=== PATIENT | male | born 1990 | race Caucasian/White ===

== ENCOUNTER 2017-11-22 14:09 | Inpatient (IN) | payer OTHER ==
--- NOTE | 2017-11-22 18:21 | HP ---
COWS - Scale Resting Pulse: 1= ID [id number] Sweatin= Chills/Flushing Restless Observation: 1= Difficult to Sit Still Pupil Size: 1= Pupils >than Normal Bone or Joint Aches: 1= Mild Discomfort Runny Nose/ Eye Tearin= Nasal Congestion GI Upset > 30mins: 2= Nausea/Diarrhea Tremor Observation: 1= Tremor Beauty, Not Seen Yawning Observation: 1= 1-2x During Session Anxiety or Irritability: 2=Irritable/Anxious Goose Flesh Skin: 3=Piloerection COWS Score: 15 CIWA Score - CIWA Score Nausea/Vomitin Muscle Tremors: 3 Anxiety: 3 Agitation: 3 Paroxysmal Sweats: 3 Orientation: 0-Oriented Tacttile Disturbances: 1-Very Mild Itch/Numbness Auditory Disturbances: 0-None Visual Disturbances: 0-None Headache: 1-Very Mild CIWA-Ar Total Score: 17 Admission ROS S - [facility] Chief Complaint: benzodiazepine and heroin withdrawal sx Allergies/Adverse Reactions: Allergies Allergy/AdvReac Type Severity Reaction Status Date / Time No Known Allergies Allergy Verified 11/22/17 18:22 History of Present Illness: 27 yo m with h/o opioid use disorder, had been using for several months but recently developed withdrawal sx and [facility]. PMHX HTN, no t on meds, ehlerrs danlos syndrome, deprewssion and anxieyt, insomnia, thirsty. Exam Limitations: No Limitations - Ebola screening Have you traveled outside of the country in the last 21 days: No Have you had contact with anyone from an Ebola affected area: No Have you been sick,other than usual withdrawal symptoms: No Do you have a fever: No - Review of Systems Constitutional: Chills, Diaphoresis, Night Sweats, Unintentional Wgt. Loss EENT: reports: Tearing, Nose Congestion Respiratory: reports: No Symptoms reported Cardiac: reports: No Symptoms Reported GI: reports: Nausea, Poor Appetite, Poor Fluid Intake, Indigestion, Abdominal cramping : reports: No Symptoms Reported Musculoskeletal: reports: Back Pain, Joint Pain, Muscle Pain Integumentary: reports: Flushing, Sweating Neuro: reports: Headache, Numbness, Seizure (last withdrawal seizures 1 year ago ), Tingling, Tremors Endocrine: reports: Increased Thirst Psychiatric: reports: Judgement Intact, Mood/Affect Appropiate, Orientated x3, Anxious, Depressed Other Systems: Reviewed and Negative Patient History - Patient Medical History Hx Anemia: No Hx Asthma: No Hx Chronic Obstructive Pulmonary Disease (COPD): No Hx Cancer: No Hx Cardiac Disorders: No Hx Congestive Heart Failure: No Hx Hypertension: No Hx Hypercholesterolemia: No Hx Pacemaker: No HX Cerebrovascular Accident: No Hx Seizures: Yes (withdrawal seizures ) Hx Dementia: No Hx Diabetes: No Hx Gastrointestinal Disorders: No Hx Liver Disease: No Hx Genitourinary Disorders: No Hx Sexually Transmitted Disorders: No Hx Renal Disease (ESRD): No Hx Thyroid Disease: No Hx Human Immunodeficiency Virus (HIV): No Hx Hepatitis C: No Hx Depression: Yes Hx Suicide Attempt: No (no si at this time) Hx Bipolar Disorder: No Hx Schizophrenia: No - Patient Surgical History Past Surgical History: Yes Hx Neurologic Surgery: No Hx Cataract Extraction: No Hx Cardiac Surgery: No Hx Lung Surgery: No Hx Breast Surgery: No Hx Breast Biopsy: No Hx Abdominal Surgery: No Hx Appendectomy: No Hx Cholecystectomy: No Hx Genitourinary Surgery: No Hx Section: No Hx Orthopedic Surgery: No Hx Hysterectomy: No Other Surgical History: tonsillectomy Anesthesia Reaction: No - PPD History Previous Implant?: Yes Documented Results: Negative w/o proof Implanted On Prior R Admission?: Yes PPD to be Administered?: Yes - Reproductive History Patient is a Female of Child Bearing Age (11 -55 yrs old): No Patient : No - Smoking Cessation Smoking history: Former smoker Have you smoked in the past 12 months: No If you are a former smoker, when did you quit?: quit 3 years ago Hx Chewing Tobacco Use: No Initiated information on smoking cessation: No 'Breaking Loose' booklet given: 11/22/17 - Substance & Tx. History Hx Alcohol Use: No Hx Substance Use: Yes Substance Use Type: Heroin, Opiates, Prescribed, Tranquilizers Hx Substance Use Treatment: Yes - Substances Abused xanax Route: Oral Frequency: Daily Amount used: 50 mg Age of first use: 17 Date of Last Use: 11/19/17 Heroin Route: Inhalation Frequency: Daily Amount used: 6-10 bags Age of first use: 27 Date of Last Use: 11/22/17 Family Disease History - Family Disease History Family History: Denies Admission Physical Exam BHS - Vital Signs Vital Signs: Vital Signs - 24 hr 11/22/17 11/22/17 16:21 16:25 Temperature 97 F L 96 F L Pulse Rate 83 101 H Respiratory 18 20 Rate Blood Pressure 136/85 132/79 - Physical General Appearance: Yes: Nourished, Appropriately Dressed, Disheveled, Mild Distress, Tremorous, Irritable, Sweating, Anxious HEENTM: Yes: EOMI, Hearing grossly Normal, Normocephalic, Normal Voice, VANE, Pharynx Normal, Nasal Congestion, Rhinorrhea Respiratory: Yes: Within Normal Limits, Chest Non-Tender, Lungs Clear, Normal Breath Sounds, No Respiratory Distress, No Accessory Muscle Use Neck: Yes: Within Normal Limits, No masses,lesions,Nodules, Supple, Trachea in good position Breast: Yes: Breast Exam Deferred Cardiology: Yes: Within Normal Limits, Regular Rhythm, Regular Rate, S1, S2 Abdominal: Yes: Normal Bowel Sounds, Non Tender, Flat, Soft, Increased Bowel Sounds, Protuberent, Distended Genitourinary: Yes: Within Normal Limits Musculoskeletal: Yes: full range of Motion, Gait Steady, Pelvis Stable, Back pain, Muscle Pain Extremities: Yes: Normal Capillary Refill, Normal Range of Motion, Non-Tender, Tremors Neurological: Yes: scalemaker II-XII NML intact, Fully Oriented, Alert, Motor Strength 5/5, Normal Response, Depressed Affect Integumentary: Yes: Normal Color, Warm, Diaphoresis, Moist Lymphatic: Yes: Within Normal Limits - Addiitonal Findings: withdrawal sx - Diagnostic (1) Dehydration Current Visit: Yes Status: Acute (2) Depression Current Visit: Yes Status: Acute (3) Mina-Danlos syndrome Current Visit: Yes Status: Acute (4) Opioid dependence with withdrawal Current Visit: Yes Status: Acute (5) Sedative, hypnotic or anxiolytic dependence with withdrawal, uncomplicated Current Visit: Yes Status: Acute (6) Withdrawal seizures Current Visit: Yes Status: Acute Cleared for Admission [facility] - Detox or Rehab [facility] Level of Care: Medically Managed Detox Regimen/Protocol: Methadone/Librium [facility] Breath Alcohol Content Breath Alcohol Content: 0 Urine Drug Screen - Results Drug Screen Negative: No Urine Drug Screen Results: BZO-Benzodiazepines, TCA-Tricyclic Antidepress
[2017-11-22] MEDS ORDERED: IBUPROFEN 400 MG TABLET (FP) PO PRN (18:23)
[2017-11-22] MEDS ORDERED: guaiFENesin/D-METHORPHAN HB 10 ML UNIT-DOSE CUPS PO PRN (18:23)
[2017-11-22] MEDS ORDERED: MAG HYDROX/AL HYDROX/SIMETH 30 ML UNIT-DOSE CUP PO PRN (18:23)
[2017-11-22] MEDS ORDERED: LOPERAMIDE HCL 2 MG CAPSULE PO PRN (18:23)
[2017-11-22] MEDS ORDERED: P-EPHED 60MG/TRIPROLIDI 2.5MG TABLET PO PRN (18:23)
[2017-11-22] MEDS ORDERED: MAGNESIUM CITRATE 300 ML BOTTLE PO PRN (18:23)
[2017-11-22] MEDS ORDERED: hydrOXYzine PAMOATE 50 MG CAPSULE (FP) PO PRN (18:23)
[2017-11-22] MEDS ORDERED: MAGNESIUM HYDROX 2400MG/30ML ORAL SUSPENSION 30 ML CUP PO PRN (18:23)
[2017-11-22] MEDS ORDERED: MENTHOL/PHENOL 1 EACH UD MM PRN (18:23)
[2017-11-22] MEDS ORDERED: ACETAMINOPHEN 325 MG TABLET (FP) PO PRN (18:23)
[2017-11-22 18:24] VITALS: BMI 26.6
[2017-11-22] MEDS ORDERED: METHADONE HCL 10 MG TABLET (FOR DETOX USE ONLY) PO ONE ×2 (19:00→23:00)
[2017-11-22] MEDS ORDERED: chlordiazePOXIDE HCL 25 MG CAPSULE PO ONE (19:00)
[2017-11-22] MEDS: PANTOPRAZOLE 40 MG TABLET (FP) PO SCH (20:35)
[2017-11-22] MEDS: chlordiazePOXIDE HCL 25 MG CAPSULE PO SCH (22:15)
[2017-11-22] MEDS: THIAMINE HCL 100 MG TABLET (FP) PO SCH (22:15)
[2017-11-22 23:50] LABS: URINE APPEARANCE SLCLOUDY; URINE BILIRUBIN NEGATIVE (NEGATIVE); URINE BLOOD NEGATIVE (NEGATIVE); URINE COLOR YELLOW; URINE GLUCOSE (UA) NEGATIVE (NEGATIVE); URINE KETONE NEGATIVE (NEGATIVE); URINE LEUK ESTERASE NEGATIVE (NEGATIVE); URINE NITRITE NEGATIVE (NEGATIVE); URINE PROTEIN NEGATIVE (NEGATIVE); URINE UROBILINOGEN NEGATIVE mg/dL (0.2-1.0)
[2017-11-23] MEDS: chlordiazePOXIDE HCL 25 MG CAPSULE PO PRN ×2 (01:50→13:12)
[2017-11-23] MEDS: chlordiazePOXIDE HCL 25 MG CAPSULE PO SCH ×4 (05:41→22:15)
--- NOTE | 2017-11-23 09:16 | CONSULT ---
[facility] Psychiatric Consult - Data Date of interview: 11/23/17 Admission source: [facility] Identifying data: Pt. is a 27 year old [place] male, single, unemployed, and currently living at home with mother. This is patient's [facility] to [facility]. Pt. admitted to for benzodiazepine dependence. Substance Abuse History: Following information confirmed with Mr. Amaral: Smoking Cessation. Smoking history: Former smoker. Have you smoked in the past 12 months: No. If you are a former smoker, when did you quit?: quit 3 years ago. Hx Chewing Tobacco Use: No. Initiated information on smoking cessation: No. 'Breaking Loose' booklet given: 11/22/17. - Substance & Tx. History. Hx Alcohol Use: No. Hx Substance Use: Yes. Substance Use Type: Heroin, Opiates, Prescribed, Tranquilizers. Hx Substance Use Treatment: Yes. - Substances Abused. xanax. Route: Oral. Frequency: Daily. Amount used: 50 mg. Age of first use: 17. Date of Last Use: 11/19/17. Heroin. Route: Inhalation. Frequency: Daily. Amount used: 6-10 bags. Age of first use: 27. Date of Last Use: 11/22/17 Medical History: Seizures (withdrawals) Psychiatric History: Pt. denies h/o psychiatric hospitalizations and suicide attempts. Pt. reports past history of outpatient care approximately six months ago and was prescribed zoloft 25mg anxiety. Reports only taking the zoloft for one month. As per patient, ' I didn't like the medication." In 2011 patient reports seeing a psychiatrist who prescribed him seroquel for insomnia. Reports only taking the seroquel for approximately four months. Pt. denies suicidal and homicidal ideation. Physical/Sexual Abuse/Trauma History: Denies. Mental Status Exam - Mental Status Exam Alert and Oriented to: Time, Place, Person Cognitive Function: Good Patient Appearance: Well Groomed Mood: Euthymic Affect: Mood Congruent Patient Behavior: Appropriate Speech Pattern: Clear, Appropriate Voice Loudness: Normal Thought Process: Goal Oriented Thought Disorder: Not Present Hallucinations: Denies Suicidal Ideation: Denies Homicidal Ideation: Denies Insight/Judgement: Poor Sleep: Poorly Appetite: Fair Muscle strength/Tone: Normal Gait/Station: Normal Psychiatric Findings - Problem List ([place] 1, 2,3) (1) Opioid dependence with withdrawal Current Visit: Yes Status: Acute (2) Insomnia Current Visit: Yes Status: Acute (3) Sedative, hypnotic or anxiolytic dependence with withdrawal, uncomplicated Current Visit: Yes Status: Acute - Initial Treatment Plan Initial Treatment Plan: Psychoeducation provided. Detoxification in progress. Seroquel 50mg qhs PRN for insomnia. Pt. reports favorable effect from previously taking seroquel. Benefits and side effects discussed. Verbal consent given. Will continue to monitor.
[2017-11-23] MEDS ORDERED: METHADONE HCL 10 MG TABLET (FOR DETOX USE ONLY) PO SCH (10:00)
[2017-11-23] MEDS: PANTOPRAZOLE 40 MG TABLET (FP) PO SCH (10:10)
[2017-11-23] MEDS: PRENATAL VITAMINS W/ FOLIC ACID TABLET (FP) PO SCH (10:10)
[2017-11-23 10:21] LABS: HEMATOCRIT 41.9 % (35.4-49); HEMOGLOBIN 13.7 GM/dL (11.7-16.9); MCH 27.9 pg (25.7-33.7); MCHC 32.6 g/dl (32.0-35.9); MEAN CELL VOLUME 85.6 fl (80-96); PLATELET COUNT 245 K/MM3 (134-434); RBC 4.89 M/mm3 (4.00-5.60); RDW 13.4 % (11.9-15.9); WHITE BLOOD COUNT 9.1 K/mm3 (4.0-10.0)
[2017-11-23] MEDS ORDERED: CYCLOBENZAPRINE HCL 10 MG TABLET (FP) PO ONE (10:36)
[2017-11-23 10:39] LABS: CHLORIDE 104 mmol/L (98-107); POTASSIUM 3.7 mmol/L (3.5-5.1); SODIUM 140 mmol/L (136-145)
[2017-11-23 10:45] LABS: ALBUMIN 3.6 g/dl (3.4-5.0); ALK PHOS 50 U/L (45-117); ANION GAP 7 (8-16); BILIRUBIN,TOTAL 0.3 mg/dL (0.2-1.0); BLOOD UREA NITROGEN 12 mg/dL (7-18); CALCIUM 8.4 mg/dL (8.5-10.1); CO2 29 mmol/L (21-32); CREATININE 0.8 mg/dL (0.7-1.3); GLUCOSE,RANDOM 88 mg/dL (74-106); SGOT/AST 29 U/L (15-37); SGPT/ALT 48 U/L (12-78)
--- NOTE | 2017-11-23 11:06 | EKG ---
Test Reason : Blood Pressure : / mmHG Vent. Rate : 095 BPM Atrial Rate : 095 BPM P-R Int : 128 ms QRS Dur : 082 ms QT Int : 370 ms P-R-T Axes : 073 052 020 degrees QTc Int : 464 ms NORMAL SINUS RHYTHM NORMAL ECG NO PREVIOUS ECGS AVAILABLE Confirmed by BEREKET HO MD ([id number]) on 11/23/2017 11:06:05 AM Referred By: Confirmed By:BEREKET HO MD
[2017-11-23 11:49] LABS: SICKLE CELL SCREEN NEGATIVE (NEGATIVE)
--- NOTE | 2017-11-23 12:42 | PN ---
S CIWA - CIWA Score Nausea/Vomitin-No Nausea/No Vomiting Muscle Tremors: 4-Moderate,w/Arms Extend Anxiety: 4-Mod. Anxious/Guarded Agitation: 3 Paroxysmal Sweats: 1-Minimal Palms Moist Orientation: 0-Oriented Tacttile Disturbances: 3-Moderate Itch/Numb/Burn Auditory Disturbances: 0-None Visual Disturbances: 0-None Headache: 0-None Present CIWA-Ar Total Score: 15 BHS COWS - Scale Resting Pulse: 0= [place] 80 or Below Sweatin= Chills/Flushing Restless Observation: 3= Extraneous Movement Pupil Size: 2= Moderately Dilated Bone or Joint Aches: 4=Acute Joint/Muscle Pain Runny Nose/ Eye Tearin= Nasal Congestion GI Upset > 30mins: 1= Stomach Cramp Tremor Observation of Outstretched Hands: 2= Slight Tremor Visible Yawning Observation: 1= 1-2x During Session Anxiety or Irritability: 2=Irritable/Anxious Goose Flesh Skin: 0=Smooth Skin COWS Score: 17 S Progress Note (SOAP) Subjective: ANXIETY,SWEATS,BODY ACHES,IRRITABILITY,CONSTIPATION AND MOM NOT EFFECTIVE. INTERMITTENT SLEEP. Objective: 11/23/17 12:40 Vital Signs Temperature 96.0 F L 11/23/17 09:42 Pulse Rate 76 11/23/17 09:42 Respiratory Rate 20 11/23/17 09:42 Blood Pressure 117/80 11/23/17 09:42 O2 Sat by Pulse Oximetry (%) Laboratory Last Values WBC 9.1 K/mm3 (4.0-10.0) 11/23/17 07:00 RBC 4.89 M/mm3 (4.00-5.60) 11/23/17 07:00 Hgb 13.7 GM/dL (11.7-16.9) 11/23/17 07:00 Hct 41.9 % (35.4-49) 11/23/17 07:00 MCV 85.6 fl (80-96) 11/23/17 07:00 MCH 27.9 pg (25.7-33.7) 11/23/17 07:00 MCHC 32.6 g/dl (32.0-35.9) 11/23/17 07:00 RDW 13.4 % (11.9-15.9) 11/23/17 07:00 Plt Count 245 K/MM3 (134-434) 11/23/17 07:00 MPV 9.0 fl (7.5-11.1) 11/23/17 07:00 Sickle Cell Screen Negative (NEGATIVE) 11/23/17 07:00 Sodium 140 mmol/L (136-145) 11/23/17 07:00 Potassium 3.7 mmol/L (3.5-5.1) 11/23/17 07:00 Chloride 104 mmol/L (98-107) 11/23/17 07:00 Carbon Dioxide 29 mmol/L (21-32) 11/23/17 07:00 Anion Gap 7 (8-16) L 11/23/17 07:00 BUN 12 mg/dL (7-18) 11/23/17 07:00 Creatinine 0.8 mg/dL (0.7-1.3) 11/23/17 07:00 Creat Clearance w eGFR > 60 (>60) 11/23/17 07:00 Random Glucose 88 mg/dL (74-106) 11/23/17 07:00 Calcium 8.4 mg/dL (8.5-10.1) L 11/23/17 07:00 Total Bilirubin 0.3 mg/dL (0.2-1.0) 11/23/17 07:00 AST 29 U/L (15-37) 11/23/17 07:00 ALT 48 U/L (12-78) 11/23/17 07:00 Alkaline Phosphatase 50 U/L (45-117) 11/23/17 07:00 Total Protein 6.0 g/dl (6.4-8.2) L 11/23/17 07:00 Albumin 3.6 g/dl (3.4-5.0) 11/23/17 07:00 Urine Color Yellow 11/22/17 23:25 Urine Appearance Slcloudy 11/22/17 23:25 Urine pH 5.0 (5.0-8.0) 11/22/17 23:25 Ur Specific [place] 1.024 (1.001-1.035) 11/22/17 23:25 Urine Protein Negative (NEGATIVE) 11/22/17 23:25 Urine Glucose (UA) Negative (NEGATIVE) 11/22/17 23:25 Urine Ketones Negative (NEGATIVE) 11/22/17 23:25 Urine Blood Negative (NEGATIVE) 11/22/17 23:25 Urine Nitrite Negative (NEGATIVE) 11/22/17 23:25 Urine Bilirubin Negative (NEGATIVE) 11/22/17 23:25 Urine Urobilinogen Negative mg/dL (0.2-1.0) 11/22/17 23:25 Ur Leukocyte Esterase Negative (NEGATIVE) 11/22/17 23:25 RPR Titer Nonreactive (NONREACTIVE) 11/23/17 07:00 HIV 1&2 Antibody Screen Negative 11/23/17 07:00 HIV P24 Antigen Negative 11/23/17 07:00 Assessment: 11/23/17 12:40 WITHDRAWAL SX Plan: CONTINUE DETOX
[2017-11-23] MEDS: CYCLOBENZAPRINE HCL 10 MG TABLET (FP) PO SCH ×2 (13:12→22:15)
[2017-11-23] MEDS: THIAMINE HCL 100 MG TABLET (FP) PO SCH (22:15)
[2017-11-23] MEDS: QUEtiapine FUMARATE 50 MG TABLET PO SCH (22:15)
[2017-11-24] MEDS: chlordiazePOXIDE HCL 25 MG CAPSULE PO SCH ×3 (05:51→17:24)
[2017-11-24] MEDS: CYCLOBENZAPRINE HCL 10 MG TABLET (FP) PO SCH ×3 (05:51→22:10)
[2017-11-24] MEDS ORDERED: METHADONE HCL 5 MG TABLET (FOR DETOX USE ONLY) PO ONE (10:00)
[2017-11-24] MEDS ORDERED: METHADONE HCL 5 MG TABLET (FOR DETOX USE ONLY) PO SCH (10:00)
[2017-11-24] MEDS: PANTOPRAZOLE 40 MG TABLET (FP) PO SCH (10:14)
[2017-11-24] MEDS: PRENATAL VITAMINS W/ FOLIC ACID TABLET (FP) PO SCH (10:16)
--- NOTE | 2017-11-24 16:39 | PN ---
[facility] CIWA - CIWA Score Nausea/Vomitin-No Nausea/No Vomiting Muscle Tremors: 4-Moderate,w/Arms Extend Anxiety: 3 Agitation: 4-Moderately Restless Paroxysmal Sweats: 1-Minimal Palms Moist Orientation: 0-Oriented Tacttile Disturbances: 3-Moderate Itch/Numb/Burn Auditory Disturbances: 0-None Visual Disturbances: 0-None Headache: 0-None Present CIWA-Ar Total Score: 15 BHS COWS - Scale Resting Pulse: 0= [place] 80 or Below Sweatin= Chills/Flushing Restless Observation: 3= Extraneous Movement Pupil Size: 0= Normal to Room Light Bone or Joint Aches: 4=Acute Joint/Muscle Pain Runny Nose/ Eye Tearin= Nasal Congestion GI Upset > 30mins: 1= Stomach Cramp Tremor Observation of Outstretched Hands: 1= Tremor [place], Not Seen Yawning Observation: 1= 1-2x During Session Anxiety or Irritability: 2=Irritable/Anxious Goose Flesh Skin: 0=Smooth Skin COWS Score: 14 [facility] Progress Note (SOAP) Subjective: ANXIETY,SWEATS,FATIGUE. Objective: 11/24/17 16:39 Vital Signs Temperature 96.9 F L 11/24/17 13:01 Pulse Rate 75 11/24/17 13:01 Respiratory Rate 18 11/24/17 13:01 Blood Pressure 98/65 11/24/17 13:01 O2 Sat by Pulse Oximetry (%) Laboratory Last Values WBC 9.1 K/mm3 (4.0-10.0) 11/23/17 07:00 RBC 4.89 M/mm3 (4.00-5.60) 11/23/17 07:00 Hgb 13.7 GM/dL (11.7-16.9) 11/23/17 07:00 Hct 41.9 % (35.4-49) 11/23/17 07:00 MCV 85.6 fl (80-96) 11/23/17 07:00 MCH 27.9 pg (25.7-33.7) 11/23/17 07:00 MCHC 32.6 g/dl (32.0-35.9) 11/23/17 07:00 RDW 13.4 % (11.9-15.9) 11/23/17 07:00 Plt Count 245 K/MM3 (134-434) 11/23/17 07:00 MPV 9.0 fl (7.5-11.1) 11/23/17 07:00 Sickle Cell Screen Negative (NEGATIVE) 11/23/17 07:00 Sodium 140 mmol/L (136-145) 11/23/17 07:00 Potassium 3.7 mmol/L (3.5-5.1) 11/23/17 07:00 Chloride 104 mmol/L (98-107) 11/23/17 07:00 Carbon Dioxide 29 mmol/L (21-32) 11/23/17 07:00 Anion Gap 7 (8-16) L 11/23/17 07:00 BUN 12 mg/dL (7-18) 11/23/17 07:00 Creatinine 0.8 mg/dL (0.7-1.3) 11/23/17 07:00 Creat Clearance w eGFR > 60 (>60) 11/23/17 07:00 Random Glucose 88 mg/dL (74-106) 11/23/17 07:00 Calcium 8.4 mg/dL (8.5-10.1) L 11/23/17 07:00 Total Bilirubin 0.3 mg/dL (0.2-1.0) 11/23/17 07:00 AST 29 U/L (15-37) 11/23/17 07:00 ALT 48 U/L (12-78) 11/23/17 07:00 Alkaline Phosphatase 50 U/L (45-117) 11/23/17 07:00 Total Protein 6.0 g/dl (6.4-8.2) L 11/23/17 07:00 Albumin 3.6 g/dl (3.4-5.0) 11/23/17 07:00 Urine Color Yellow 11/22/17 23:25 Urine Appearance Slcloudy 11/22/17 23:25 Urine pH 5.0 (5.0-8.0) 11/22/17 23:25 Ur Specific [place] 1.024 (1.001-1.035) 11/22/17 23:25 Urine Protein Negative (NEGATIVE) 11/22/17 23:25 Urine Glucose (UA) Negative (NEGATIVE) 11/22/17 23:25 Urine Ketones Negative (NEGATIVE) 11/22/17 23:25 Urine Blood Negative (NEGATIVE) 11/22/17 23:25 Urine Nitrite Negative (NEGATIVE) 11/22/17 23:25 Urine Bilirubin Negative (NEGATIVE) 11/22/17 23:25 Urine Urobilinogen Negative mg/dL (0.2-1.0) 11/22/17 23:25 Ur Leukocyte Esterase Negative (NEGATIVE) 11/22/17 23:25 RPR Titer Nonreactive (NONREACTIVE) 11/23/17 07:00 Hepatitis C Antibody <0.1 s/co ratio (0.0-0.9) 11/22/17 07:00 HIV 1&2 Antibody Screen Negative 11/23/17 07:00 HIV P24 Antigen Negative 11/23/17 07:00 Assessment: 11/24/17 16:39 WITHDRAWAL SX Plan: CONTINUE DETOX
[2017-11-24] MEDS: THIAMINE HCL 100 MG TABLET (FP) PO SCH (22:09)
[2017-11-24] MEDS: QUEtiapine FUMARATE 50 MG TABLET PO SCH (22:10)
[2017-11-24] MEDS: chlordiazePOXIDE 5 MG CAPSULE PO SCH (22:10)
[2017-11-25] MEDS: CYCLOBENZAPRINE HCL 10 MG TABLET (FP) PO SCH ×3 (05:32→22:13)
[2017-11-25] MEDS: chlordiazePOXIDE 5 MG CAPSULE PO SCH ×3 (05:32→17:09)
[2017-11-25] MEDS ORDERED: METHADONE HCL 10 MG TABLET (FOR DETOX USE ONLY) PO ONE (10:00)
[2017-11-25] MEDS: PRENATAL VITAMINS W/ FOLIC ACID TABLET (FP) PO SCH (10:20)
[2017-11-25] MEDS: PANTOPRAZOLE 40 MG TABLET (FP) PO SCH (10:20)
--- NOTE | 2017-11-25 14:21 | PN ---
BHS Progress Note (SOAP) Subjective: Body Aches, Sweating, Interrupted Sleep, Fatigue. Objective: PT. A & O X 3, OBSERVED AMBULATING ON UNIT. NO ACUTE DISTRESS. 11/25/17 14:20 Vital Signs Temperature 96.3 F L 11/25/17 13:21 Pulse Rate 83 11/25/17 13:21 Respiratory Rate 18 11/25/17 13:21 Blood Pressure 108/70 11/25/17 13:21 O2 Sat by Pulse Oximetry (%) Laboratory Tests 11/22/17 11/22/17 11/23/17 07:00 23:25 07:00 WBC 9.1 RBC 4.89 Hgb 13.7 Hct 41.9 MCV 85.6 MCH 27.9 MCHC 32.6 RDW 13.4 Plt Count 245 MPV 9.0 Sickle Cell Screen Negative Sodium Potassium Chloride Carbon Dioxide Anion Gap BUN Creatinine Creat Clearance w eGFR Random Glucose Calcium Total Bilirubin AST ALT Alkaline Phosphatase Total Protein Albumin Urine Color Yellow Urine Appearance Slcloudy Urine pH 5.0 Ur Specific [place] 1.024 Urine Protein Negative Urine Glucose (UA) Negative Urine Ketones Negative Urine Blood Negative Urine Nitrite Negative Urine Bilirubin Negative Urine Urobilinogen Negative Ur Leukocyte Esterase Negative RPR Titer Hepatitis C Antibody <0.1 HIV 1&2 Antibody Screen HIV P24 Antigen 11/23/17 11/23/17 11/23/17 07:00 07:00 07:00 WBC RBC Hgb Hct MCV MCH MCHC RDW Plt Count MPV Sickle Cell Screen Sodium 140 Potassium 3.7 Chloride 104 Carbon Dioxide 29 Anion Gap 7 L BUN 12 Creatinine 0.8 Creat Clearance w eGFR > 60 Random Glucose 88 Calcium 8.4 L Total Bilirubin 0.3 AST 29 ALT 48 Alkaline Phosphatase 50 Total Protein 6.0 L Albumin 3.6 Urine Color Urine Appearance Urine pH Ur Specific [place] Urine Protein Urine Glucose (UA) Urine Ketones Urine Blood Urine Nitrite Urine Bilirubin Urine Urobilinogen Ur Leukocyte Esterase RPR Titer Nonreactive Hepatitis C Antibody HIV 1&2 Antibody Screen Negative HIV P24 Antigen Negative LABS NOTED. Assessment: 11/25/17 14:20 WITHDRAWAL SYMPTOMS. Plan: CONTINUE DETOX. INCREASE DAILY PO FLUID INTAKE.
[2017-11-25] MEDS: chlordiazePOXIDE HCL 10 MG CAPSULE PO SCH (22:13)
[2017-11-25] MEDS: THIAMINE HCL 100 MG TABLET (FP) PO SCH (22:13)
[2017-11-25] MEDS: QUEtiapine FUMARATE 50 MG TABLET PO SCH (22:13)
[2017-11-26] MEDS ORDERED: METHADONE HCL 5 MG TABLET (FOR DETOX USE ONLY) PO ONE (06:00)
[2017-11-26 06:05] VITALS: BP 103/62; PULSE 61; TEMP 97.8
[2017-11-26] MEDS: chlordiazePOXIDE HCL 10 MG CAPSULE PO SCH (06:17)
[2017-11-26] MEDS: CYCLOBENZAPRINE HCL 10 MG TABLET (FP) PO SCH (06:18)
[2017-11-26] MEDS: PANTOPRAZOLE 40 MG TABLET (FP) PO SCH (09:09)
[2017-11-26] MEDS: PRENATAL VITAMINS W/ FOLIC ACID TABLET (FP) PO SCH (09:09)
[2017-11-26] MEDS ORDERED: METHADONE HCL 10 MG TABLET (FOR DETOX USE ONLY) PO SCH (10:00)
--- NOTE | 2017-11-26 17:25 | DS ---
[facility] Detox Discharge Summary Admission Date: 11/22/17 Discharge Date: 11/26/17 - History Present History: Opioid Dependence, Sedative Dependence Additional Comments: NO BED AVAILABLE AT [facility] AT THIS TIME. PATIENT ADVISED TO CONTACT ADMISSION DEPT. OF [facility] TOMORROW AM TO INQUIRE ABOUT BED AVAILABILITY AT THAT TIME OR ELSE CONSIDER LOCAL 12-STEP / NA OUTPATIENT SUPPORT GROUPS FOR AFTERCARE. PATIENT WAS DISCHARGED FROM DETOX UNIT IN STABLE MEDICAL CONDITION. Pertinent Past History: Depression, Mina-Danlos Syndrome, Dehydration, Insomnia. - Physical Exam Results Vital Signs: Vital Signs Temperature 97.8 F 11/26/17 06:04 Pulse Rate 61 11/26/17 06:04 Respiratory Rate 18 11/26/17 06:04 Blood Pressure 103/62 11/26/17 06:04 O2 Sat by Pulse Oximetry (%) Pertinent Admission Physical Exam Findings: WITHDRAWAL SYMPTOMS. Laboratory Tests 11/22/17 11/22/17 11/23/17 07:00 23:25 07:00 WBC 9.1 RBC 4.89 Hgb 13.7 Hct 41.9 MCV 85.6 MCH 27.9 MCHC 32.6 RDW 13.4 Plt Count 245 MPV 9.0 Sickle Cell Screen Negative Sodium Potassium Chloride Carbon Dioxide Anion Gap BUN Creatinine Creat Clearance w eGFR Random Glucose Calcium Total Bilirubin AST ALT Alkaline Phosphatase Total Protein Albumin Urine Color Yellow Urine Appearance Slcloudy Urine pH 5.0 Ur Specific [place] 1.024 Urine Protein Negative Urine Glucose (UA) Negative Urine Ketones Negative Urine Blood Negative Urine Nitrite Negative Urine Bilirubin Negative Urine Urobilinogen Negative Ur Leukocyte Esterase Negative RPR Titer Hepatitis C Antibody <0.1 HIV 1&2 Antibody Screen HIV P24 Antigen 11/23/17 11/23/17 11/23/17 07:00 07:00 07:00 WBC RBC Hgb Hct MCV MCH MCHC RDW Plt Count MPV Sickle Cell Screen Sodium 140 Potassium 3.7 Chloride 104 Carbon Dioxide 29 Anion Gap 7 L BUN 12 Creatinine 0.8 Creat Clearance w eGFR > 60 Random Glucose 88 Calcium 8.4 L Total Bilirubin 0.3 AST 29 ALT 48 Alkaline Phosphatase 50 Total Protein 6.0 L Albumin 3.6 Urine Color Urine Appearance Urine pH Ur Specific [place] Urine Protein Urine Glucose (UA) Urine Ketones Urine Blood Urine Nitrite Urine Bilirubin Urine Urobilinogen Ur Leukocyte Esterase RPR Titer Nonreactive Hepatitis C Antibody HIV 1&2 Antibody Screen Negative HIV P24 Antigen Negative LABS NOTED. - Treatment Hospital Course: Detox Protocol Followed, Detoxed Safely, Responded well, Discharged Condition Good Patient has Accepted a Rehab Referral to: NO BED AVAILABLE AT [facility], ADVISE INQUIRE AGAIN TOMORROW - Medication Discharge Medications: Ambulatory Orders NK [No Known Home Medication] 11/22/17 - Diagnosis (1) Dehydration Status: Acute (2) Depression Status: Acute Qualifiers: Depression Type: unspecified Qualified Code(s): F32.9 - Major depressive disorder, single episode, unspecified (3) Mina-Danlos syndrome Status: Acute (4) Insomnia Status: Acute Qualifiers: Insomnia type: unspecified Qualified Code(s): G47.00 - Insomnia, unspecified (5) Opioid dependence with withdrawal Status: Acute (6) Sedative, hypnotic or anxiolytic dependence with withdrawal, uncomplicated Status: Acute (7) Withdrawal seizures Status: Suspected Qualifiers: Complication of substance-induced condition: uncomplicated Qualified Code(s ): F19.230 - Other psychoactive substance dependence with withdrawal, uncomplicated - AMA Did Patient Leave Against Medical Advice: No
[2017-11-27] MEDS ORDERED: METHADONE HCL 5 MG TABLET (FOR DETOX USE ONLY) PO SCH (06:00)
== END 2017-11-26 09:15 | disposition home or self-care (01) | DRG 775 ==
LOC: YASAS 14:09 → Y3N 18:43
PROVIDERS: ADMIT Internal Medicine; ATTEND Internal Medicine
PROC: HZ2ZZZZ Detoxification Services for Substance Abuse Treatment (ICD-10-PCS; principal; 2017-11-22)
DX: F10.230 Alcohol dependence with withdrawal, uncomplicated (principal); F13.230 Sedative, hypnotic or anxiolytic dependence with withdrawal, uncomplicated; F32.9 Major depressive disorder, single episode, unspecified; G47.00 Insomnia, unspecified; E86.0 Dehydration; Q79.6 Ehlers-Danlos syndromes
CPT/HCPCS: 36415; 80053; 81003; 85027; 85660; 86593; 86803; 87389; 93005; 93010

== ENCOUNTER 2019-08-09 14:58 | Inpatient (IN) | payer OTHER ==
[2019-08-09 17:57] VITALS: BMI 24.9
--- NOTE | 2019-08-09 19:53 | HP ---
COWS - Scale Resting Pulse: 1= [place] 81-100 Sweatin=Flushed/Facial Moisture Restless Observation: 3= Extraneous Movement Pupil Size: 1= Pupils >than Normal Bone or Joint Aches: 2= Severe Diffuse Aches Runny Nose/ Eye Tearin= Runny Nose/Eyes GI Upset > 30mins: 3= Vomiting/Diarrhea Tremor Observation: 2= Slight Tremor Visible Yawning Observation: 0= None Anxiety or Irritability: 2=Irritable/Anxious Goose Flesh Skin: 0=Smooth Skin COWS Score: 18 CIWA Score - Admission Criteria [facility]ASAS Guidelines: Admission for Medically Managed Detox: Requires at least one of the followin. CIWA greater than 12 2. Seizures within the past 24 hours 3. Delirium tremens within the past 24 hours 4. Hallucinations within the past 24 hours 5. Acute intervention needed for co occurring medical disorder 6. Acute intervention needed for co occurring psychiatric disorder 7. Severe withdrawal that cannot be handled at a lower level of care (continued vomiting, continued diarrhea, abnormal vital signs) requiring intravenous medication and/or fluids 8. Admitting History and Physical - Admission Chief Complaint: opioid withdrawal sx History of Present Illness: Patient is a 29 yo male with of opioid dependence is here seeking inpatient detox. Patient attended MAT with suboxone and sublocade but relapsed, last sublocade inj february 2019, refuse dose for July 2019, wishes to detox and start methadone maintenance program. PMHX; EDS(MINA-DANLOS SYNDROME, HTN psych: anxiety and depression, denies Reports hx of xanax withdrawal seizure with last episode Nov 2017. Denies hx of overdose. Patient provided consent to contact Dr. Orozco [phone] to coordinate patient's care to initiate detox treatment verify last Sublocade dose , patient did not receive his the 08/01/[address] Orozco recommends and patient is in agreement, once patient is discharged from detox to start methadone maintenance therapy. Munir Spence Date: 1990 Address: [place] [address] Sex: Male Rx Written Rx Dispensed Drug Quantity Days Supply Prescriber Name 07/29/2019 08/01/2019 sublocade 300 mg/1.5 ml syring 2ml David Torres MD 02/22/2019 03/14/2019 sublocade 300 mg/1.5 ml syring 2ml 28 David Orozco MD 09/04/2018 09/07/2018 acetaminophen-cod #3 tablet 30 5 Glenn Alonso MD History Source: Patient Limitations to Obtaining History: No Limitations - Smoking History Smoking history: Former smoker Have you smoked in the past 12 months: No If you are a former smoker, when did you quit?: quit 3 years ago - Alcohol/Substance Use Hx Alcohol Use: No Admission [facility] Allergies/Adverse Reactions: Allergies Allergy/AdvReac Type Severity Reaction Status Date / Time No Known Allergies Allergy Verified 11/22/17 18:22 Exam Limitations: No Limitations - Ebola screening Have you traveled outside of the country in the last 21 days: No Have you had contact with anyone from an Ebola affected area: No - Review of Systems Constitutional: Chills, Diaphoresis, Loss of Appetite, Changes in sleep, Unintentional Wgt. Loss, Other (anxious) EENT: reports: Nose Congestion Respiratory: reports: No Symptoms reported Cardiac: reports: Lightheadedness GI: reports: Diarrhea, Nausea, Poor Appetite, Poor Fluid Intake, Vomiting, Abdominal cramping : reports: No Symptoms Reported Musculoskeletal: reports: Back Pain, Joint Pain Integumentary: reports: No Symptoms Reported Neuro: reports: Headache Endocrine: reports: Increased Thirst Hematology: reports: No Symptoms Reported Psychiatric: reports: Orientated x3, Anxious, Depressed Other Systems: Reviewed and Negative Patient History - Patient Medical History Hx Anemia: No Hx Asthma: No Hx Chronic Obstructive Pulmonary Disease (COPD): No Hx Cancer: No Hx Cardiac Disorders: No Hx Congestive Heart Failure: No Hx Hypertension: No Hx Hypercholesterolemia: No Hx Pacemaker: No HX Cerebrovascular Accident: No Hx Seizures: Yes (withdrawal seizures Nov 2017) Hx Dementia: No Hx Diabetes: No Hx Gastrointestinal Disorders: No Hx Liver Disease: No Hx Genitourinary Disorders: No Hx Sexually Transmitted Disorders: No Hx Renal Disease (ESRD): No Hx Thyroid Disease: No Hx Human Immunodeficiency Virus (HIV): No Hx Hepatitis C: No Hx Depression: Yes Hx Suicide Attempt: No (no si at this time) Hx Bipolar Disorder: No Hx Schizophrenia: No - Patient Surgical History Past Surgical History: Yes Hx Neurologic Surgery: No Hx Cataract Extraction: No Hx Cardiac Surgery: No Hx Lung Surgery: No Hx Breast Surgery: No Hx Breast Biopsy: No Hx Abdominal Surgery: No Hx Appendectomy: No Hx Cholecystectomy: No Hx Genitourinary Surgery: No Hx Section: No Hx Orthopedic Surgery: No Hx Hysterectomy: No Other Surgical History: tonsillectomy Anesthesia Reaction: No - PPD History Documented Results: Negative w/proof Date: 11/24/17 PPD to be Administered?: Yes - Smoking Cessation Smoking history: Former smoker Have you smoked in the past 12 months: No If you are a former smoker, when did you quit?: quit 3 years ago Hx Chewing Tobacco Use: No Initiated information on smoking cessation: No - Substance & Tx. History Hx Alcohol Use: Yes Hx Substance Use: Yes Substance Use Type: Heroin, Tranquilizers Hx Substance Use Treatment: Yes ([facility] July 2018) - Substances abused Heroin Substance route: Inhalation Frequency: Daily Amount used: 80 to 100 bags Age of first use: 27 Date of last use: 08/07/19 Alprazolam (Xanax) Substance route: Oral Frequency: Daily Amount used: 10 to 20 mg Age of first use: 16 Date of last use: 08/05/19 Alcohol Substance route: Oral Frequency: 1-2 times per week Amount used: 6 to 8 drinks of liqour Age of first use: 15 Date of last use: 08/03/19 Admission Physical Exam S - Vital Signs Vital Signs: Vital Signs - 24 hr 08/09/19 17:43 Temperature 100.2 F H Pulse Rate 92 H Respiratory 18 Rate Blood Pressure 130/87 - Physical General Appearance: Yes: Appropriately Dressed, Moderate Distress, Thin, Sweating, Anxious HEENTM: Yes: EOMI, Hearing grossly Normal, Normal ENT Inspection, Normocephalic , Normal Voice, VANE, Pharynx Normal, Tm's normal, Other (rhinorrhea) Respiratory: Yes: Chest Non-Tender, Lungs Clear, Normal Breath Sounds, No Respiratory Distress, No Accessory Muscle Use Neck: Yes: Within Normal Limits Breast: Yes: Breast Exam Deferred Cardiology: Yes: Regular Rhythm, Regular Rate Abdominal: Yes: Normal Bowel Sounds, Non Tender, Flat, Soft Genitourinary: Yes: Within Normal Limits Back: Yes: Normal Inspection Musculoskeletal: Yes: full range of Motion, Gait Steady, Pelvis Stable, Back pain Extremities: Yes: Normal Capillary Refill, Normal Inspection, Normal Range of Motion, Non-Tender Neurological: Yes: coiled tubing supervisor II-XII NML intact, Fully Oriented, Alert, Motor Strength 5/5, Normal Response, Depressed Affect Integumentary: Yes: Normal Color, Warm, Diaphoresis Lymphatic: Yes: Within Normal Limits - Diagnostic (1) Hypertension Current Visit: Yes Status: Chronic Qualifiers: Hypertension type: essential hypertension Qualified Code(s): I10 - Essential (primary) hypertension (2) Mina-Danlos syndrome Current Visit: Yes Status: Acute (3) Opioid dependence with withdrawal Current Visit: Yes Status: Acute Cleared for Admission S - Detox or Rehab [facility] Level of Care: Medically Managed Detox Regimen/Protocol: Methadone Breathalyzer - Breathalyzer Breathalyzer: 0 Urine Drug Screen - Test Device Lot number: [id number] Expiration date: 03/22/21 - Control Is test valid?: Yes - Results Drug screen NEGATIVE: Yes Urine drug screen results: MOP-Opiates, BUP-Suboxone Inpatient Rehab Admission - Rehab Decision to Admit Inpatient rehab admission?: No
[2019-08-09] MEDS ORDERED: METHADONE HCL 10 MG TABLET (FOR DETOX USE ONLY) PO ONE (19:57)
[2019-08-09] MEDS ORDERED: MENTHOL/PHENOL 1 EACH UD MM PRN (19:57)
[2019-08-09] MEDS ORDERED: BISMUTH SUBSALICYLATE 524 MG/30 ML UD PO PRN (19:57)
[2019-08-09] MEDS ORDERED: IBUPROFEN 400 MG TABLET (FP) PO PRN (19:57)
[2019-08-09] MEDS ORDERED: ACETAMINOPHEN 325 MG TABLET (FP) PO PRN ×2 (19:57)
[2019-08-09] MEDS ORDERED: MAGNESIUM CITRATE 300 ML BOTTLE PO PRN (19:57)
[2019-08-09] MEDS ORDERED: MAG HYDROX/AL HYDROX/SIMETH 30 ML UNIT-DOSE CUP PO PRN (19:57)
[2019-08-09] MEDS ORDERED: MAGNESIUM HYDROX 2400MG/30ML ORAL SUSPENSION 30 ML CUP PO PRN (19:57)
[2019-08-09] MEDS: diazePAM 5 MG TABLET PO PRN (21:44)
[2019-08-09] MEDS: cloNIDine HCL 0.1 MG TABLET PO PRN (21:44)
[2019-08-09] MEDS: THIAMINE HCL 100 MG TABLET (FP) PO SCH (22:23)
[2019-08-10] MEDS: diazePAM 5 MG TABLET PO PRN ×5 (04:15→22:13)
[2019-08-10] MEDS ORDERED: METHADONE HCL 10 MG TABLET (FOR DETOX USE ONLY) ONE (08:57)
[2019-08-10] MEDS ORDERED: METHADONE HCL 5 MG TABLET (FOR DETOX USE ONLY) ONE (08:57)
[2019-08-10] MEDS: LISINOPRIL 20 MG TABLET (FP) PO SCH (09:05)
[2019-08-10] MEDS: PANTOPRAZOLE 40 MG TABLET (FP) PO SCH (09:05)
[2019-08-10] MEDS: PRENATAL VITAMINS W/ FOLIC ACID TABLET (FP) PO SCH (09:05)
[2019-08-10] MEDS ORDERED: METHADONE (DETOX) 20 MG, METHADONE (DETOX) 5 MG PO ONE (10:00)
[2019-08-10 10:09] LABS: ALBUMIN 4.3 g/dl (3.4-5.0); BILIRUBIN,TOTAL 0.6 mg/dL (0.2-1); BLOOD UREA NITROGEN 13.1 mg/dL (7-18); CREATININE 0.8 mg/dL (0.55-1.3); POTASSIUM 3.5 mmol/L (3.5-5.1); TOT PROT 7.1 g/dl (6.4-8.2)
[2019-08-10 10:39] LABS: HEMATOCRIT 42.4 % (35.4-49); HEMOGLOBIN 14.7 GM/dL (11.7-16.9); MCHC 34.6 g/dl (32.0-35.9); MEAN CELL VOLUME 83.9 fl (80-96); MEAN PLT VOLUME 8.8 fl (7.5-11.1); PLATELET COUNT 295 K/MM3 (134-434); RBC 5.05 M/mm3 (4.00-5.60); RDW 13.2 % (11.9-15.9); WHITE BLOOD COUNT 10.5 K/mm3 (4.0-10.0)
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
--- NOTE | 2019-08-10 12:43 | PN ---
BHS COWS - Scale Resting Pulse: 1= [place] 81-100 Sweatin= Chills/Flushing Restless Observation: 1= Difficult to Sit Still Pupil Size: 1= Pupils >than Normal Bone or Joint Aches: 1= Mild Discomfort Runny Nose/ Eye Tearin= Nasal Congestion GI Upset > 30mins: 2= Nausea/Diarrhea Tremor Observation of Outstretched Hands: 1= Tremor [place], Not Seen Yawning Observation: 1= 1-2x During Session Anxiety or Irritability: 2=Irritable/Anxious Goose Flesh Skin: 3=Piloe[place] COWS Score: 15 BHS Progress Note (SOAP) Subjective: Pt states still not feeling well- with withdrawal Sx- came in yesterday for heroin detox O: Vital Signs - 24 hr 08/09/19 08/09/19 08/10/19 17:43 22:02 00:21 Temperature 100.2 F H 99.6 F Pulse Rate 92 H 88 Respiratory 18 18 18 Rate Blood Pressure 130/87 139/91 08/10/19 08/10/19 08/10/19 03:30 06:04 09:49 Temperature 98 F 97.9 F Pulse Rate 71 74 Respiratory 18 16 18 Rate Blood Pressure 98/60 109/75 Laboratory Tests 08/10/19 08/10/19 08/10/19 08:00 08:00 08:00 WBC 10.5 H RBC 5.05 Hgb 14.7 Hct 42.4 MCV 83.9 MCH 29.0 MCHC 34.6 RDW 13.2 Plt Count 295 D MPV 8.8 Sodium 141 Potassium 3.5 Chloride 105 Carbon Dioxide 25 Anion Gap 11 BUN 13.1 Creatinine 0.8 Est GFR (CKD-EPI)AfAm 138.93 Est GFR (CKD-EPI)NonAf 119.87 Random Glucose 82 Calcium 9.0 Total Bilirubin 0.6 AST 10 L ALT 21 Alkaline Phosphatase 54 Total Protein 7.1 Albumin 4.3 RPR Titer Nonreactive a/p: OUD- continue detox, pt wants custodial methadone MAT, pt will d/w couselor
[2019-08-10 18:38] LABS: PH,URINE 5.5 (5.0-8.0); URINE APPEARANCE TURBID; URINE BILIRUBIN NEGATIVE (NEGATIVE); URINE COLOR DK YELLOW; URINE GLUCOSE (UA) NEGATIVE (NEGATIVE); URINE KETONE TRACE (NEGATIVE); URINE LEUK ESTERASE NEGATIVE (NEGATIVE); URINE NITRITE NEGATIVE (NEGATIVE); URINE PROTEIN TRACE (NEGATIVE); URINE UROBILINOGEN 0.2 mg/dL (0.2-1.0)
[2019-08-10] MEDS: THIAMINE HCL 100 MG TABLET (FP) PO SCH (22:13)
[2019-08-10] MEDS: MELATONIN 5 MG TABLETS PO PRN (22:14)
[2019-08-10] MEDS: cloNIDine HCL 0.1 MG TABLET PO PRN (22:14)
[2019-08-10] MEDS: METHOCARBAMOL 500 MG TABLET PO PRN (22:14)
[2019-08-11] MEDS: hydrOXYzine PAMOATE 25 MG CAPSULE (FP) PO PRN ×2 (03:12→22:49)
[2019-08-11] MEDS: diazePAM 5 MG TABLET PO PRN ×5 (03:12→22:48)
[2019-08-11] MEDS: METHOCARBAMOL 500 MG TABLET PO PRN ×4 (03:14→22:48)
[2019-08-11] MEDS: LISINOPRIL 20 MG TABLET (FP) PO SCH (09:47)
[2019-08-11] MEDS: PRENATAL VITAMINS W/ FOLIC ACID TABLET (FP) PO SCH (09:47)
[2019-08-11] MEDS: PANTOPRAZOLE 40 MG TABLET (FP) PO SCH (09:48)
[2019-08-11] MEDS ORDERED: METHADONE HCL 10 MG TABLET (FOR DETOX USE ONLY) PO ONE (10:00)
[2019-08-11] MEDS ORDERED: DICYCLOMINE HCL 20 MG TABLET PO ONE (13:49)
--- NOTE | 2019-08-11 13:54 | PN ---
BHS COWS - Scale Resting Pulse: 0= [place] 80 or Below Sweatin= Chills/Flushing Restless Observation: 0= Sits Still Pupil Size: 1= Pupils >than Normal Bone or Joint Aches: 1= Mild Discomfort Runny Nose/ Eye Tearin= Nasal Congestion GI Upset > 30mins: 1= Stomach Cramp Tremor Observation of Outstretched Hands: 2= Slight Tremor Visible Yawning Observation: 2= >3x During Session Anxiety or Irritability: 2=Irritable/Anxious Goose Flesh Skin: 0=Smooth Skin COWS Score: 11 S Progress Note (SOAP) Subjective: doing well with methadone detox regimen ate breakfast tolerate food and fluid well long history of gerd treated with potonix one dose of bentyl for "spasm" like in stomach Objective: 08/11/19 13:53 Vital Signs Temperature 97.6 F 08/11/19 09:33 Pulse Rate 71 08/11/19 09:33 Respiratory Rate 18 08/11/19 09:33 Blood Pressure 122/81 08/11/19 09:33 O2 Sat by Pulse Oximetry (%) Laboratory Last Values WBC 10.5 K/mm3 (4.0-10.0) H 08/10/19 08:00 RBC 5.05 M/mm3 (4.00-5.60) 08/10/19 08:00 Hgb 14.7 GM/dL (11.7-16.9) 08/10/19 08:00 Hct 42.4 % (35.4-49) 08/10/19 08:00 MCV 83.9 fl (80-96) 08/10/19 08:00 MCH 29.0 pg (25.7-33.7) 08/10/19 08:00 MCHC 34.6 g/dl (32.0-35.9) 08/10/19 08:00 RDW 13.2 % (11.9-15.9) 08/10/19 08:00 Plt Count 295 K/MM3 (134-434) D 08/10/19 08:00 MPV 8.8 fl (7.5-11.1) 08/10/19 08:00 Sodium 141 mmol/L (136-145) 08/10/19 08:00 Potassium 3.5 mmol/L (3.5-5.1) 08/10/19 08:00 Chloride 105 mmol/L (98-107) 08/10/19 08:00 Carbon Dioxide 25 mmol/L (21-32) 08/10/19 08:00 Anion Gap 11 MMOL/L (8-16) 08/10/19 08:00 BUN 13.1 mg/dL (7-18) 08/10/19 08:00 Creatinine 0.8 mg/dL (0.55-1.3) 08/10/19 08:00 Est GFR (CKD-EPI)AfAm 138.93 08/10/19 08:00 Est GFR (CKD-EPI)NonAf 119.87 08/10/19 08:00 Random Glucose 82 mg/dL (74-106) 08/10/19 08:00 Calcium 9.0 mg/dL (8.5-10.1) 08/10/19 08:00 Total Bilirubin 0.6 mg/dL (0.2-1) 08/10/19 08:00 AST 10 U/L (15-37) L 08/10/19 08:00 ALT 21 U/L (13-61) 08/10/19 08:00 Alkaline Phosphatase 54 U/L (45-117) 08/10/19 08:00 Total Protein 7.1 g/dl (6.4-8.2) 08/10/19 08:00 Albumin 4.3 g/dl (3.4-5.0) 08/10/19 08:00 Urine Color Dk yellow 08/10/19 16:30 Urine Appearance Turbid 08/10/19 16:30 Urine pH 5.5 (5.0-8.0) 08/10/19 16:30 Ur Specific [place] 1.041 (1.010-1.035) H 08/10/19 16:30 Urine Protein Trace (NEGATIVE) 08/10/19 16:30 Urine Glucose (UA) Negative (NEGATIVE) 08/10/19 16:30 Urine Ketones Trace (NEGATIVE) H 08/10/19 16:30 Urine Blood Negative (NEGATIVE) 08/10/19 16:30 Urine Nitrite Negative (NEGATIVE) 08/10/19 16:30 Urine Bilirubin Negative (NEGATIVE) 08/10/19 16:30 Urine Urobilinogen 0.2 mg/dL (0.2-1.0) 08/10/19 16:30 Ur Leukocyte Esterase Negative (NEGATIVE) 08/10/19 16:30 RPR Titer Nonreactive (NONREACTIVE) 08/10/19 08:00 lab noted Assessment: 08/11/19 13:54 opiate withdrawal sx discuss medication assisted treatment program Plan: continue methadone mushroom picker narcan from pharmacy
[2019-08-11] MEDS: cloNIDine HCL 0.1 MG TABLET PO PRN (13:57)
[2019-08-11] MEDS: THIAMINE HCL 100 MG TABLET (FP) PO SCH (22:48)
[2019-08-11] MEDS: MELATONIN 5 MG TABLETS PO PRN (22:49)
[2019-08-12] MEDS: diazePAM 5 MG TABLET PO PRN ×3 (03:21→12:24)
[2019-08-12] MEDS: METHOCARBAMOL 500 MG TABLET PO PRN ×2 (05:32→12:24)
[2019-08-12] MEDS: hydrOXYzine PAMOATE 25 MG CAPSULE (FP) PO PRN ×2 (05:32→12:23)
[2019-08-12] MEDS ORDERED: METHADONE HCL 10 MG TABLET (FOR DETOX USE ONLY) ONE (08:38)
[2019-08-12] MEDS ORDERED: METHADONE HCL 5 MG TABLET (FOR DETOX USE ONLY) ONE (08:39)
[2019-08-12] MEDS: PRENATAL VITAMINS W/ FOLIC ACID TABLET (FP) PO SCH (09:47)
[2019-08-12] MEDS: PANTOPRAZOLE 40 MG TABLET (FP) PO SCH (09:47)
[2019-08-12] MEDS: LISINOPRIL 20 MG TABLET (FP) PO SCH (09:47)
[2019-08-12] MEDS ORDERED: METHADONE (DETOX) 10 MG, METHADONE (DETOX) 5 MG PO ONE (10:00)
[2019-08-12 13:23] VITALS: BP 111/72; PULSE 66; TEMP 99.2
--- NOTE | 2019-08-12 15:09 | DS ---
[facility] Detox Discharge Summary Admission Date: 08/09/19 Discharge Date: 08/12/19 - History Present History: Opioid Dependence Additional Comments: 29 yearss old male admitted on 08/09/19 for opiate withdrawal sx management did well with methadone deox regimen patient request seroquel for sleep aid temi teaching on psychotropic medication may lower the seizure threshold recommend avoid psychotropic medication patient request not to discontinue valium prn that he needed for anxiety strong recommend work closely with psychiatrist for anxiety management seen by psychiatrist consider SSRI patient favor valium continuation for anxiety that valium as part of methadone detox regimen discuss medication assisted treatment program pick up man narcan from pharmacy patient prefers to leave the detox unit that valium not continue with methadone patient is alert oriented x 3 speech clearly coherently cardiac S1S2 regular rate rhythm Respiratory clear lung bilaterally on auscultation extremities full range of motion - Physical Exam Results Vital Signs: Vital Signs Temperature 99.2 F 08/12/19 13:22 Pulse Rate 66 08/12/19 13:22 Respiratory Rate 18 08/12/19 13:22 Blood Pressure 111/72 08/12/19 13:22 O2 Sat by Pulse Oximetry (%) Pertinent Admission Physical Exam Findings: opioid withdrawal sx Laboratory Last Values WBC 10.5 K/mm3 (4.0-10.0) H 08/10/19 08:00 RBC 5.05 M/mm3 (4.00-5.60) 08/10/19 08:00 Hgb 14.7 GM/dL (11.7-16.9) 08/10/19 08:00 Hct 42.4 % (35.4-49) 08/10/19 08:00 MCV 83.9 fl (80-96) 08/10/19 08:00 MCH 29.0 pg (25.7-33.7) 08/10/19 08:00 MCHC 34.6 g/dl (32.0-35.9) 08/10/19 08:00 RDW 13.2 % (11.9-15.9) 08/10/19 08:00 Plt Count 295 K/MM3 (134-434) D 08/10/19 08:00 MPV 8.8 fl (7.5-11.1) 08/10/19 08:00 Sodium 141 mmol/L (136-145) 08/10/19 08:00 Potassium 3.5 mmol/L (3.5-5.1) 08/10/19 08:00 Chloride 105 mmol/L (98-107) 08/10/19 08:00 Carbon Dioxide 25 mmol/L (21-32) 08/10/19 08:00 Anion Gap 11 MMOL/L (8-16) 08/10/19 08:00 BUN 13.1 mg/dL (7-18) 08/10/19 08:00 Creatinine 0.8 mg/dL (0.55-1.3) 08/10/19 08:00 Est GFR (CKD-EPI)AfAm 138.93 08/10/19 08:00 Est GFR (CKD-EPI)NonAf 119.87 08/10/19 08:00 Random Glucose 82 mg/dL (74-106) 08/10/19 08:00 Calcium 9.0 mg/dL (8.5-10.1) 08/10/19 08:00 Total Bilirubin 0.6 mg/dL (0.2-1) 08/10/19 08:00 AST 10 U/L (15-37) L 08/10/19 08:00 ALT 21 U/L (13-61) 08/10/19 08:00 Alkaline Phosphatase 54 U/L (45-117) 08/10/19 08:00 Total Protein 7.1 g/dl (6.4-8.2) 08/10/19 08:00 Albumin 4.3 g/dl (3.4-5.0) 08/10/19 08:00 Urine Color Dk yellow 08/10/19 16:30 Urine Appearance Turbid 08/10/19 16:30 Urine pH 5.5 (5.0-8.0) 08/10/19 16:30 Ur Specific [place] 1.041 (1.010-1.035) H 08/10/19 16:30 Urine Protein Trace (NEGATIVE) 08/10/19 16:30 Urine Glucose (UA) Negative (NEGATIVE) 08/10/19 16:30 Urine Ketones Trace (NEGATIVE) H 08/10/19 16:30 Urine Blood Negative (NEGATIVE) 08/10/19 16:30 Urine Nitrite Negative (NEGATIVE) 08/10/19 16:30 Urine Bilirubin Negative (NEGATIVE) 08/10/19 16:30 Urine Urobilinogen 0.2 mg/dL (0.2-1.0) 08/10/19 16:30 Ur Leukocyte Esterase Negative (NEGATIVE) 08/10/19 16:30 RPR Titer Nonreactive (NONREACTIVE) 08/10/19 08:00 lab noted - Treatment Hospital Course: Detox Protocol Followed, Detoxed Safely, Responded well, Discharged Condition Good, Rehab Referral Accepted Patient has Accepted a Rehab Referral to: medication assisted treatment program - Medication Discharge Medications: Ambulatory Orders Buprenorphine [Sublocade] 300 mg SQ DAILY 08/09/19 Lisinopril [Prinivil] 20 mg PO DAILY 08/09/19 Pantoprazole Sodium [Protonix] 1 tablet PO DAILY 08/09/19 Naloxone HCl [Narcan] 4 mg NS ASDIR PRN #1 spray 08/11/19 - Diagnosis (1) Opioid dependence, uncomplicated Status: Acute (2) Hypertension Status: Chronic Qualifiers: Hypertension type: essential hypertension Qualified Code(s): I10 - Essential (primary) hypertension - AMA Did Patient Leave Against Medical Advice: No COWS (PN) - Opiate Withdrawal Resting Pulse: 0= [place] 80 or Below Sweatin= Chills/Flushing Restless Observation: 0= Sits Still Pupil Size: 0= Normal to Room Light Bone or Joint Aches: 1= Mild Discomfort Runny Nose/ Eye Tearin= None GI Upset > 30mins: 1= Stomach Cramp Tremor Observation of Outstretched Hands: 1= Tremor [place], Not Seen Yawning Observation: 1= 1-2x During Session Anxiety or Irritability: 1=Feels Anxious/Irritable Goose Flesh Skin: 0=Smooth Skin COWS Score: 6
[2019-08-13] MEDS ORDERED: METHADONE HCL 10 MG TABLET (FOR DETOX USE ONLY) PO ONE (10:00)
--- NOTE | 2019-08-13 13:35 | EKG ---
Test Reason : Blood Pressure : / mmHG Vent. Rate : 080 BPM Atrial Rate : 080 BPM P-R Int : 146 ms QRS Dur : 082 ms QT Int : 388 ms P-R-T Axes : 066 042 038 degrees QTc Int : 447 ms NORMAL SINUS RHYTHM NORMAL ECG WHEN COMPARED WITH ECG OF 22-NOV-2017 20:22, NO SIGNIFICANT CHANGE WAS FOUND Confirmed by MD Wood Edward ([id number]) on 08/13/2019 1:34:45 PM Referred By: Confirmed By:Júnior Wood MD
[2019-08-14] MEDS ORDERED: METHADONE HCL 5 MG TABLET (FOR DETOX USE ONLY) PO ONE (06:00)
== END 2019-08-12 14:45 | disposition home or self-care (01) | DRG 773 ==
LOC: YASAS 14:58 → Y3N 20:44
PROVIDERS: ADMIT Allergy & Immunology; ATTEND Allergy & Immunology
PROC: HZ2ZZZZ Detoxification Services for Substance Abuse Treatment (ICD-10-PCS; principal; 2019-08-09)
DX: F11.23 Opioid dependence with withdrawal (principal); F13.230 Sedative, hypnotic or anxiolytic dependence with withdrawal, uncomplicated; F10.10 Alcohol abuse, uncomplicated; I10 Essential (primary) hypertension; F43.10 Post-traumatic stress disorder, unspecified; G47.00 Insomnia, unspecified; Q79.60 Ehlers-Danlos syndrome, unspecified; Z86.19 Personal history of other infectious and parasitic diseases; Z91.19 Patient's noncompliance with other medical treatment and regimen
CPT/HCPCS: 36415; 80053; 81003; 85027; 86593; 93005; 93010; J0735

== ENCOUNTER 2022-04-15 08:57 | Inpatient (IN) | payer OTHER ==
[2022-04-15 09:39] VITALS: BMI 27.3
[2022-04-15] MEDS ORDERED: DICYCLOMINE HCL 10 MG CAPSULE PO PRN (10:23)
[2022-04-15] MEDS ORDERED: BISMUTH SUBSALICYLATE 262 MG/15 ML BTL PO PRN (10:23)
[2022-04-15] MEDS ORDERED: BENZOCAINE/MENTHOL (CHLORASEPTIC ) LOZENGE MM PRN (10:23)
[2022-04-15] MEDS ORDERED: NALOXONE HCL (KLOXXADO) 8 MG SPRAY NS PRN (10:23)
[2022-04-15] MEDS ORDERED: IBUPROFEN 400 MG TABLET (FP) PO PRN (10:23)
[2022-04-15] MEDS ORDERED: BUPRENORPHINE HCL 150 MCG, BUPRENORPHINE HCL 75 MCG BC PRN (10:23)
[2022-04-15] MEDS ORDERED: ONDANSETRON *ODT* 4 MG TABLET SL PRN (10:23)
[2022-04-15] MEDS ORDERED: MAGNESIUM CITRATE 300 ML BOTTLE PO PRN (10:23)
[2022-04-15] MEDS ORDERED: MAGNESIUM HYDROX 2400MG/30ML ORAL SUSPENSION 30 ML CUP PO PRN (10:23)
[2022-04-15] MEDS ORDERED: LOPERAMIDE HCL 2 MG CAPSULE PO PRN (10:23)
[2022-04-15] MEDS ORDERED: MAG HYDROX/AL HYDROX/SIMETH 30 ML UNIT-DOSE CUP PO PRN (10:23)
[2022-04-15] MEDS ORDERED: IBUPROFEN 600 MG TABLET (FP) PO PRN (10:23)
[2022-04-15] MEDS ORDERED: ACETAMINOPHEN 325 MG TABLET (FP) PO PRN ×2 (10:23)
[2022-04-15] MEDS ORDERED: BUPRENORPHINE HCL 150 MCG FILM BC ONE (10:42)
[2022-04-15] MEDS ORDERED: BUPRENORPHINE HCL 75 MCG FILM BC ONE (10:43)
[2022-04-15] MEDS ORDERED: diazePAM 5 MG TABLET ONE ×2 (10:51→11:08)
[2022-04-15] MEDS: diazePAM 5 MG TABLET PO PRN ×3 (10:52→23:26)
[2022-04-15] MEDS ORDERED: BUPRENORPHINE HCL 150 MCG, BUPRENORPHINE HCL 75 MCG BC ONE (11:00)
[2022-04-15] MEDS ORDERED: cloNIDine HCL 0.1 MG TABLET PO ONE (11:00)
[2022-04-15] MEDS: PRENATAL VITAMINS W/ FOLIC ACID TABLET (FP) PO SCH (12:21)
[2022-04-15] MEDS ORDERED: cloNIDine HCL 0.1 MG TABLET PO PRN (14:23)
[2022-04-15] MEDS: hydrOXYzine PAMOATE 25 MG CAPSULE (FP) PO SCH ×3 (14:46→23:08)
[2022-04-15 17:16] LABS: HEMATOCRIT 40.6 % (35.4-49); HEMOGLOBIN 13.8 GM/dL (11.7-16.9); MCH 27.5 pg (25.7-33.7); MCHC 34.1 g/dl (32.0-35.9); MEAN CELL VOLUME 80.8 fl (80-96); MEAN PLT VOLUME 8.7 fl (7.5-11.1); PLATELET COUNT 270 10^3/uL (134-434); RBC 5.02 M/mm3 (4.00-5.60); RDW 13.8 % (11.9-15.9); WHITE BLOOD COUNT 8.5 K/mm3 (4.0-10.0)
[2022-04-15 17:29] LABS: ALBUMIN 4.6 g/dl (3.4-5.0); CALCIUM 9.8 mg/dL (8.5-10.1)
[2022-04-15 17:32] LABS: CREATININE 0.8 mg/dL (0.55-1.3)
[2022-04-15 17:35] LABS: BILIRUBIN,TOTAL 0.9 mg/dL (0.2-1); TOT PROT 7.5 g/dl (6.4-8.2)
[2022-04-15] MEDS: MELATONIN 5 MG TABLETS PO SCH (23:08)
[2022-04-15] MEDS: THIAMINE HCL 100 MG TABLET (FP) PO SCH (23:08)
[2022-04-15] MEDS: FAMOTIDINE 20 MG TABLET PO SCH (23:08)
[2022-04-16] MEDS ORDERED: BUPRENORPHINE HCL 150 MCG, BUPRENORPHINE HCL 75 MCG BC PRN
[2022-04-16] MEDS ORDERED: BUPRENORPHINE HCL 150 MCG FILM BC ONE ×2 (07:53→17:15)
[2022-04-16] MEDS ORDERED: BUPRENORPHINE HCL 75 MCG FILM BC ONE ×2 (07:53→17:16)
[2022-04-16] MEDS: BUPRENORPHINE HCL 150 MCG, BUPRENORPHINE HCL 75 MCG BC SCH ×2 (08:08→18:18)
[2022-04-16] MEDS: hydrOXYzine PAMOATE 25 MG CAPSULE (FP) PO SCH ×5 (08:09→22:19)
[2022-04-16] MEDS: diazePAM 5 MG TABLET PO PRN ×3 (08:43→22:20)
[2022-04-16] MEDS: PRENATAL VITAMINS W/ FOLIC ACID TABLET (FP) PO SCH (10:38)
[2022-04-16] MEDS: METHOCARBAMOL 500 MG TABLET PO PRN ×2 (10:39→18:19)
[2022-04-16] MEDS: PANTOPRAZOLE 40 MG TABLET PO SCH (10:39)
[2022-04-16] MEDS: FAMOTIDINE 20 MG TABLET PO SCH (22:19)
[2022-04-16] MEDS: THIAMINE HCL 100 MG TABLET (FP) PO SCH (22:19)
[2022-04-16] MEDS: MELATONIN 5 MG TABLETS PO SCH (22:19)
[2022-04-17] MEDS: BUPRENORPHINE HCL 450 MCG FILM BC SCH ×2 (05:31→17:56)
[2022-04-17] MEDS: hydrOXYzine PAMOATE 25 MG CAPSULE (FP) PO SCH ×5 (05:31→22:09)
[2022-04-17] MEDS: diazePAM 5 MG TABLET PO PRN ×3 (05:31→22:09)
[2022-04-17] MEDS: PRENATAL VITAMINS W/ FOLIC ACID TABLET (FP) PO SCH (10:25)
[2022-04-17] MEDS: PANTOPRAZOLE 40 MG TABLET PO SCH (10:26)
[2022-04-17] MEDS: METHOCARBAMOL 500 MG TABLET PO PRN ×2 (10:28→22:10)
[2022-04-17] MEDS: NICOTINE 10 MG CARTRIDGE (INHALER) IH PRN ×2 (14:09→17:59)
[2022-04-17] MEDS: FAMOTIDINE 20 MG TABLET PO SCH (22:09)
[2022-04-17] MEDS: THIAMINE HCL 100 MG TABLET (FP) PO SCH (22:09)
[2022-04-17] MEDS: MELATONIN 5 MG TABLETS PO SCH (22:09)
[2022-04-18] MEDS: hydrOXYzine PAMOATE 25 MG CAPSULE (FP) PO SCH ×5 (05:34→22:08)
[2022-04-18] MEDS: METHOCARBAMOL 500 MG TABLET PO PRN ×3 (05:37→22:10)
[2022-04-18] MEDS: BUPRENORPHINE/NALOXONE 4 MG/1 MG FILM PACKET SL SCH ×2 (05:37→17:51)
[2022-04-18] MEDS: diazePAM 5 MG TABLET PO PRN ×4 (05:43→20:08)
[2022-04-18] MEDS: PRENATAL VITAMINS W/ FOLIC ACID TABLET (FP) PO SCH (10:15)
[2022-04-18] MEDS: PANTOPRAZOLE 40 MG TABLET PO SCH (10:16)
[2022-04-18] MEDS: NICOTINE 10 MG CARTRIDGE (INHALER) IH PRN ×2 (13:13→17:52)
[2022-04-18] MEDS ORDERED: QUEtiapine FUMARATE 50 MG TABLET PO ONE (22:00)
[2022-04-18] MEDS: FAMOTIDINE 20 MG TABLET PO SCH (22:08)
[2022-04-18] MEDS: MELATONIN 5 MG TABLETS PO SCH (22:08)
[2022-04-18] MEDS: THIAMINE HCL 100 MG TABLET (FP) PO SCH (22:08)
[2022-04-19] MEDS ORDERED: BUPRENORPHINE/NALOXONE 8 MG/2 MG FILM PACKET SL ONE (06:00)
[2022-04-19] MEDS: hydrOXYzine PAMOATE 25 MG CAPSULE (FP) PO SCH ×2 (06:03→10:33)
[2022-04-19] MEDS: METHOCARBAMOL 500 MG TABLET PO PRN (06:04)
[2022-04-19] MEDS: diazePAM 5 MG TABLET PO PRN (06:05)
[2022-04-19 09:03] VITALS: BP 122/78; PULSE 91; TEMP 98.7
[2022-04-19] MEDS: PANTOPRAZOLE 40 MG TABLET PO SCH (10:33)
[2022-04-19] MEDS: PRENATAL VITAMINS W/ FOLIC ACID TABLET (FP) PO SCH (10:33)
== END 2022-04-19 09:20 | disposition home or self-care (01) | DRG 773 ==
LOC: YASAS 08:57 → Y3N 11:15
PROVIDERS: ADMIT Allergy & Immunology; ATTEND Surgery
PROC: HZ2ZZZZ Detoxification Services for Substance Abuse Treatment (ICD-10-PCS; principal; 2022-04-15)
DX: F11.23 Opioid dependence with withdrawal (principal); F17.210 Nicotine dependence, cigarettes, uncomplicated; F43.10 Post-traumatic stress disorder, unspecified; I10 Essential (primary) hypertension; G47.00 Insomnia, unspecified; Q79.60 Ehlers-Danlos syndrome, unspecified; U07.0 Vaping-related disorder; K21.9 Gastro-esophageal reflux disease without esophagitis; Z28.310 Unvaccinated for COVID-19; Z86.69 Personal history of other diseases of the nervous system and sense organs; Z56.0 Unemployment, unspecified
CPT/HCPCS: 36415; 80053; 85027; 86780; 87811; C9803-CS; J0735; U0003; U0005